=== PATIENT | female | born 1975 | race Caucasian/White ===

== ENCOUNTER → 2023-08-26 14:30 | Outpatient (REF) | payer OTHER, SELFPAY | LOC: WDC 14:30 | PROVIDERS: ATTENDING PHYSICIAN Obstetrics & Gynecology; FAMILY PHYSICIAN Family Medicine | DX: Z12.31 Encounter for screening mammogram for malignant neoplasm of breast (principal) | CPT/HCPCS: 77063; 77067 ==

== ENCOUNTER → 2023-09-12 13:10 | Outpatient (REF) | payer OTHER, SELFPAY | LOC: HWRAD 13:10 | PROVIDERS: ATTENDING PHYSICIAN Obstetrics & Gynecology; FAMILY PHYSICIAN Family Medicine | DX: R10.32 Left lower quadrant pain (principal) | CPT/HCPCS: 76830; 76856 ==

== ENCOUNTER → 2023-12-02 15:33 | Outpatient (REF) | payer OTHER, SELFPAY | LOC: RAD 15:33 | PROVIDERS: ATTENDING PHYSICIAN Family Medicine | DX: M25.562 Pain in left knee (principal) | CPT/HCPCS: 73564 ==

== ENCOUNTER → 2024-08-27 13:40 | Outpatient (REF) | payer OTHER, SELFPAY | LOC: WDC 13:40 | PROVIDERS: ATTENDING PHYSICIAN Family Medicine | DX: Z12.31 Encounter for screening mammogram for malignant neoplasm of breast (principal) | CPT/HCPCS: 77063; 77067 ==